=== PATIENT | female | born 1985 | race Hispanic/Latino ===

== ENCOUNTER 2018-05-21 13:54 | Emergency (ER) | payer OTHER ==
[~2018-05-21 13:54] MED LIST: AMOXIL500 MG PO; AMPICILLIN TRI500 MG PO; HYDROMORPHONE HC2 M1 PO; IBUPROFEN800 M1 PO; IBUPROFEN800 MG PO; KEFLEX500 MG PO; MACROBID100 MG PO; PERCOCET 325 MG1 TA2 PO; PERCOCET 5-3251 EACH PO; POLYTRIM O200 GTT/BO OP; ZOFRAN 4 MG TABL4 MG PO; ZOFRAN ODT4 M1 SL
== END 2018-05-21 14:09 | disposition admitted as inpatient to this hospital (09) ==
LOC: ERH 13:54
DX: K08.89 Other specified disorders of teeth and supporting structures (principal)